=== PATIENT | female | born 1945 | race American Indian/Alaskan Native ===

== ENCOUNTER 2018-02-01 09:07 | Outpatient (CLI) | payer MEDICARE ==
--- NOTE | 2018-02-01 11:47 | Ultrasound Report ---
BILATERAL DIGITAL DIAGNOSTIC MAMMOGRAM with CAD and RIGHT BREAST ULTRASOUND: 02/01/18 09:00:00 CLINICAL: Palpable right breast lump. COMPARISON:12/01/09 FINDINGS: The breasts are mostly fatty. An irregular right upper and are mass correlates with the right palpable lump and measures 4.0 x 2.7 x 3.3 cm on the mammogram.No other mass, architectural distortion or suspicious calcifications . The fibroglandular pattern of the left breast is unchanged except for an irregular asymmetry in the upper breast on a spot MLO view. No architectural distortion or suspicious calcifications of the left breast. Ultrasound of the right breast (including all four quadrants and the retroareolar area) was performed and demonstrated an irregular solid hypoechoic mass at 2 o'clock 7 cm from the nipple. It measures 3.0 x 1.6 x 2.5 cm and correlates with the mammographic mass. No other mass and no cyst of the right breast. Ultrasound of the right axilla demonstrated several small lymph nodes with central fat and benign morphology. No suspicious right axillary lymph nodes. Ultrasound of the left breast (including all four quadrants and the retroareolar area) was performed and demonstrated no mass, cyst or shadowing. Ultrasound of the left axilla demonstrated several small lymph nodes with central fat and benign morphology. No suspicious left axillary lymph nodes. IMPRESSION: 1. A highly suspicious 3 cm right breast mass at 2 o'clock. 2. No suspicious lymph nodes. 3. Negative left breast. BI-RADS CATEGORY: 5 - - Highly Suggestive of Malignancy RECOMMENDATION: Ultrasound guided needle core biopsy of the right breast. I discussed the findings and the recommendation for needle core biopsy of the right breast with the patient and her daughter at the time of the examination. ACR BI-RADS MAMMOGRAPHIC CODES: 0 = Needs additional imaging evaluation; 1 = Negative; 2 = Benign; 3 = Probably benign; 4 = Suspicious; 5 = Malignant; 6 = Known biopsy-proven malignancy COMMENT: 1. Dense breast tissue, i.e., adenosis, fibrocystic changes, etc., may obscure an underlying neoplasm. 2. Approximately 10% of cancers are not detected with mammography. 3. A negative mammography report should not delay biopsy if a clinically suspicious mass is present. COMMENT: Patient follow-up letters are generated by our [employer] application.
== END 2018-02-01 09:08 | disposition home or self-care (01) ==
LOC: MAMMO 09:07
PROVIDERS: ATTEND Internal Medicine
DX: R92.8 Other abnormal and inconclusive findings on diagnostic imaging of breast (principal); Z88.6 Allergy status to analgesic agent
CPT/HCPCS: 77066

== ENCOUNTER 2018-02-15 15:20 | Outpatient (CLI) | payer MEDICARE, OTHER | END 2018-02-15 15:21 | disposition home or self-care (01) | LOC: LABHHL 15:20 | PROVIDERS: ATTEND Surgery | DX: C50.911 Malignant neoplasm of unspecified site of right female breast (principal); Z88.6 Allergy status to analgesic agent | CPT/HCPCS: 88305; 88342; 88361 ==

== ENCOUNTER 2018-02-27 12:46 | Outpatient (CLI) | payer MEDICARE ==
--- NOTE | 2018-02-27 15:35 | Mammography Report ---
BONE DEXA:02/27/18 12:46:00 CLINICAL: Postmenopausal.Newly diagnosed right breast cancer. There is a comparison DEXA from 12/01/09 but it was performed on a different scanner in this prohibits a true comparative analysis by the computer. TECHNIQUE: Two site bone DEXA performed on an [employer] scanner. FINDINGS: The average BMD of the lumbar spine L1-L4 is 1.576g/cm squared with a T-score of +4.8 and a Z-score of 6.4. The average BMD of the left hip is 1.244g/cm squared with a T-score of +2.5 and a Z-score of +2.6. IMPRESSION: 1. WHO classification: Normal with average fracture risk based on both spine and left hip measurements. 2. The lumbar spine and left hip BMD levels are relatively high which suggests there may be a an underlying metabolic disorder. However, this is not a new phenomenon since she also had relatively high T-scores and Z scores on a comparison DEXA from 12/01/09. RECOMMENDATION: Clinical correlation and routine screening. DEFINITIONS: BMD = Bone Mineral Density T-score = BMD related to mean peak bone mass of young adult (mean expressed in Standard Deviation) Z-score = Age matched BMD expressed in SD World Health Organization (WHO) Diagnostic Criteria Normal T-score > -1 SD Osteopenia T-score between -1 and -2.4 SD Osteoporosis T-score -2.5 SD or below NOTE: BMD is not the only risk factor for fracture. One should also consider factors such as the patient's age, risk of falling, previous osteoporotic fracture, family history of osteoporotic fractures, current smoker, and low body weight. Z-scores are not calculated if >80 years of age.
== END 2018-02-27 12:47 | disposition home or self-care (01) ==
LOC: MAMMO 12:46
PROVIDERS: ATTEND Internal Medicine Hematology & Oncology
DX: Z13.820 Encounter for screening for osteoporosis (principal); F17.210 Nicotine dependence, cigarettes, uncomplicated; Z78.0 Asymptomatic menopausal state
CPT/HCPCS: 77080

== ENCOUNTER 2018-03-20 06:01 | Observation (INO) | payer MEDICARE ==
[~2018-03-20 06:01] MED LIST: ANCEF IV ONE; BACITRACIN IR ONE; GARAMYCIN IV ONE; NACL 0.9% IR ONE; WATER FOR IRRIG STERILE IR ONE
[2018-03-20] MEDS ORDERED: NACL BACTERIOSTATIC INFILTRATI ONE (06:40)
[2018-03-20] MEDS ORDERED: SUBLIMAZE IV NR (07:40)
[2018-03-20] MEDS ORDERED: DILAUDID IV PRN (07:40)
[2018-03-20] MEDS ORDERED: BACITRACIN ONE (07:41)
[2018-03-20] MEDS ORDERED: GARAMYCIN ONE (07:41)
[2018-03-20] MEDS ORDERED: NACL ONE (07:42)
[2018-03-20] MEDS ORDERED: ANCEF ONE (07:42)
[2018-03-20] MEDS ORDERED: METHYLENE BLUE ONE (07:43)
[2018-03-20] MEDS ORDERED: MARCAINE 0.5% INFILTRATI ONE (07:49)
[2018-03-20] MEDS ORDERED: DIPRIVAN 10 MG/ML IV ONE (07:55)
--- NOTE | 2018-03-20 07:55 | Anesthesia Day of Surgery ---
Anesthesia Day of Surgery - Day of Surgery Patient Examined: Yes Patient H&P Reviewed: Yes Patient is NPO: Yes
--- NOTE | 2018-03-20 07:55 | Anesthesia Consultation ---
Anesthesia Consult and Med Hx Date of service: 03/20/18 - Airway Anesthetic Teeth Evaluation: Good ROM Head & Neck: Adequate Mental/Hyoid Distance: Adequate Mallampati Class: Class II Intubation Access Assessment: Probably Good - Pulmonary Exam CTA: Yes - Cardiac Exam Cardiac Exam: RRR - Pre-Operative Health Status ASA Pre-Surgery Classification: ASA3 Proposed Anesthetic Plan: General Nerve Block: PEC - Pulmonary Hx Smoking: No Hx Asthma: No Hx Respiratory Symptoms: No SOB: No COPD: No - Cardiovascular System Hx Hypertension: Yes Hx Heart Attack/AMI: No - Central Nervous System Hx Seizures: No CVA: Yes (2010; residual right sided weakness) - Gastrointestinal Hx Gastroesophageal Reflux Disease: Yes (asymptomatic today) - Endocrine Hx Renal Disease: No Hx Liver Disease: No 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 Consented for PEC block. Refuses all blood products.
[2018-03-20] MEDS ORDERED: NEURONTIN PO NR (08:00)
[2018-03-20] MEDS ORDERED: PEPCID PO NR (08:00)
[2018-03-20] MEDS ORDERED: VERSED IV NR (08:00)
[2018-03-20] MEDS ORDERED: ANCEF/STERILE WATER 2 GM/20 ML IV NR (08:00)
[2018-03-20] MEDS ORDERED: LACTATED RINGERS 1,000 ML IV SCH ×2 (08:00→12:00)
--- NOTE | 2018-03-20 09:08 | Operative Report ---
Operative Report Operative Report: Date of Service: March 20, 2018 Preoperative diagnosis: Right breast cancer of the upper inner quadrant Postoperative diagnosis: Same Procedure: Right total mastectomy and sentinel lymph node biopsy Surgeon: Ruthie Wagner M.D. Promotional Marketing Analyst: Sandy Hayward D.O. Anesthesia: Gen. Findings: Radiograph specimen right mastectomy with clip present; 3 SLNs and negative for malignancy on frozen Complications: None Drains: 1 Estimated blood loss: Minimal Disposition: PACU in good condition Indications for operative procedure: This is a 72-year-old lady with newly diagnosed right breast cancer of the upper inner quadrant IDCA grade [id number] ER /MT positive. She wished to proceed with a right mastectomy with SLNB and possible ALND. Patient wished to proceed with the above procedure. Procedure in detail: Anesthesia placed right pectoral muscle block prior to going to the operating room. The patient was taken to the operating room and was placed supine. Gen. anesthesia was administered. Right nipple was injected with radioisotope and 1 cc of methylene blue mixed with 1 cc of saline. Timeout was performed. Typical mastectomy incision markings were made of right breast to include known cancer at the 2:00 position. Right SLN hot spot was marked. Attention was taken towards the right breast. First began raising of the superior flap to the level of the clavicle superiorly and posteriorly to the pectoralis muscle. Followed by raising of the medial flap to the level of the sternum and posteriorly to the pectoralis muscle. Followed by raising of the lateral flap to the level of the latissimus dorsi muscle and taken down posteriorly. The gamma probe was inserted into the axilla. The area of location of SLN was identified. the axillary fasica was opened. 3 SLNs were identified and sent to pathology, one lymph node with blue dye present. Frozen section from all SLNs negative for malignancy. Then proceeded with raising of the inferior flap to the level of the inframammary fold taken posterior to the pectoralis muscle. The mastectomy/breast was removed from the pectoralis muscle without incident. The specimen was appropriately marked and sent to radiology and pathology. Radiograph specimen with clip present. Hemostasis was obtained with the bovie cautery. She tolerated surgery very well and Dr. Mcneil then proceeded with immediate tissue felt dyeing machine tender placement.
[2018-03-20] MEDS ORDERED: DECADRON ONE ×2 (09:21)
[2018-03-20] MEDS ORDERED: XYLOCAINE MPF 2% ONE (09:21)
[2018-03-20] MEDS ORDERED: BENADRYL ONE (09:21)
[2018-03-20] MEDS ORDERED: METHYLENE BLUE IRRIGATION ONE (09:45)
[2018-03-20] MEDS ORDERED: NACL INFILTRATI ONE (09:45)
[2018-03-20] MEDS ORDERED: NEO SYNEPHRINE/NS Syringe(OR USE) IV ONE (09:46)
[2018-03-20] MEDS ORDERED: WATER FOR IRRIG STERILE IR ONE (10:12)
[2018-03-20] MEDS ORDERED: BENADRYL PO PRN (10:32)
[2018-03-20] MEDS ORDERED: ZOFRAN IV PRN (10:32)
[2018-03-20] MEDS ORDERED: TYLENOL PO PRN ×2 (10:32)
[2018-03-20] MEDS ORDERED: REGLAN PO PRN (10:32)
[2018-03-20] MEDS ORDERED: SODIUM CHLORIDE FLUSH SYRINGE 10 ML IV PRN (10:32)
[2018-03-20] MEDS ORDERED: ROXICODONE PO PRN (10:32)
--- NOTE | 2018-03-20 10:32 | Post Operative Note ---
Pre-op diagnosis: right breast cancer Post-op diagnosis: same Findings: right mastectomy defect Procedure: right breast reconstruction with tissue aba tutor and mesh Anesthesia: GETA Surgeon: CIARRA SHERMAN Estimated blood loss: minimal Condition: stable Disposition: PACU
[2018-03-20] MEDS ORDERED: BACITRACIN IR ONE (11:31)
[2018-03-20] MEDS ORDERED: GARAMYCIN IV ONE (11:31)
[2018-03-20] MEDS ORDERED: ANCEF IV ONE (11:31)
[2018-03-20] MEDS ORDERED: NACL 0.9% IR ONE (11:31)
--- NOTE | 2018-03-20 11:31 | Mammography Report ---
SPECIMEN RADIOGRAPH RIGHT BREAST: 03/20/18 06:01:00 CLINICAL: Right mastectomy specimen FINDINGS: An irregular mass and a biopsy clip are identified within the specimen. IMPRESSION: Excision of the known cancer.
[2018-03-20] MEDS ORDERED: ROBINUL ONE (12:19)
[2018-03-20] MEDS ORDERED: BLOXIVERZ ONE (12:19)
--- NOTE | 2018-03-20 14:08 | Post Anesthesia Evaluation ---
- Post Anesthesia Evaluation Patient Participated: Yes Airway Patent: Yes Stable Respiratory Function: Yes Nausea/Vomiting: No Temp > 96.8F: Yes Pain Manageable: Yes Adequeate Hydration: Yes Anesthesia Complications: No Other Comments: Block providing adequate analgesia. OK for transfer to floor.
--- NOTE | 2018-03-20 16:50 | Operative Report ---
PREOPERATIVE DIAGNOSIS: Right -sided breast cancer. POSTOPERATIVE DIAGNOSIS: Right -sided breast cancer. PROCEDURES: 1. Right breast reconstruction with tissue flower shop manager, prepectoral CPT CODE 26603. 2. Right breast reconstruction using implantation of biological mesh, FlexHD for breast reconstruction, CPT code 38453. 3. Application of ROB, negative pressure wound VAC device to the right breast. 4. Postoperative wound healing, CPT code 08759. SURGEON: Carlos Alberto Liang MD WELT ROUGHER: None. ANESTHESIA: General. OPERATIVE INDICATIONS: This is a 72-year-old female with right-sided breast cancer, who decided to undergo right-sided mastectomy, was referred by Dr. Wagner. The patient was given the options of breast reconstruction and decided to proceed with a right tissue flower shop manager reconstruction. Risks and benefits of surgery discussed with the patient. She agreed. OPERATIVE DETAILS: With informed consent obtained, the patient brought to the operating room and placed supine on the operating room table. Preoperative antibiotics and general anesthesia were administered. The patient was prepped and draped in usual sterile fashion. Timeout was called verifying the name of the patient, operation being performed, and side and site of the operation. Dr. Wagner began her portion of the operation and was to be dictated separately. Upon arrival to the room, she had performed the right-sided mastectomy and sentinel lymph node biopsy. I assessed the defect, skin flaps were thin, but seemed adequate. There was a significant amount of skin resection that was done so there was going to be some tension on the closure. Achieved hemostasis, irrigated copiously with triple antibiotic, measured the chest wall, and selected our implants. I took a [place] [employer] high profile smooth 500 mL tissue flower shop manager, serial #[id number] and on the back table at repair that with a piece of FlexHD pliable 13 x 22 cm shaped perforated serial #[id number]. I wrapped the flower shop manager with a piece of FlexHD. We used 2-0 PDS sutures to anchor it to the 5 suture tabs and also some spanning sutures in order to secure posteriorly. We sucked all the air out of the flower shop manager and then irrigated it in triple antibiotic and Betadine, placed it in the breast pocket and secured it to the chest wall inframammary fold lateral chest wall using the suture tabs and 2-0 Vicryl sutures. Some sutures were placed in the FlexHD and anchored to expand to the upper pectoralis muscle as well to prevent rotation. A 15-Bruneian and 19-Bruneian round Judah drains were placed in the prepectoral pocket. Everything was again copiously irrigated with triple antibiotic and Betadine, and we then proceeded with closure. 3-0 Monocryl deep dermals were used, 3-0 Monocryl running subcuticular with a barbed V-Loc suture was used on the skin and then a ROB negative pressure wound VAC device was applied to the right breast for postoperative wound healing. The patient tolerated procedure well, was awakened from general anesthesia, transferred to PACU in stable condition. COMPLICATIONS: None. ESTIMATED BLOOD LOSS: Less than 50 mL, total fill volume 0 mL, the flower shop manager. FINDINGS: Right mastectomy defect. JOB# [id number] Amanda/ROSE MARY
[2018-03-20] MEDS: ANCEF/NS 1 GM/50 ML 1 GM/50 ML BAG IV SCH (19:20)
[2018-03-20] MEDS: NEURONTIN PO SCH (22:03)
[2018-03-20] MEDS: COLACE PO SCH (22:03)
[2018-03-21] MEDS: ANCEF/NS 1 GM/50 ML 1 GM/50 ML BAG IV SCH (03:08)
[2018-03-21] MEDS: NEURONTIN PO SCH ×2 (05:25→21:50)
[2018-03-21] MEDS: COLACE PO SCH ×2 (11:13→21:50)
--- NOTE | 2018-03-21 15:16 | Progress Note ---
Assessment and Plan This is a 72 year old lady with Stage II right breast cancer of the upper inner quadrant, POD#1 right total mastectomy with SLNB and tissue fretted instruments inspector placement. No acute events overnight. 1. Right chest with incision healing well. 2. CHRISTOPHER drain education. 3. OOB to hallway. 4. D/C planning for tomorrow. Subjective Date of service: 03/21/18 Principal diagnosis: Right breast cancer of the upper inner quadrant Interval history: This is a 72 year old lady with Stage II right breast cancer of the upper inner quadrant, POD#1 right total mastectomy with SLNB and tissue fretted instruments inspector placement. No acute events overnight. Objective - Constitutional Vitals: Vital Signs - 12hr 18 18 03/21/18 04:00 07:36 12:11 Temperature 98.6 F 98.5 F 98.5 F Pulse Rate 71 74 71 Respiratory 18 20 20 Rate Blood Pressure 125/62 Blood Pressure 116/61 138/52 [Left] O2 Sat by Pulse 95 95 Oximetry General appearance: Present: no acute distress - EENT Eyes: PERRL, EOM intact ENT: hearing intact, clear oral mucosa Ears: bilateral: normal - Neck Neck: supple - Respiratory Respiratory effort: normal Respiratory: bilateral: CTA - Breasts Breasts: other (right PICCO dressing intact; no hematoma; JPs to bulb suction) - Cardiovascular Rhythm: regular Extremities: no ischemia, pulses intact, pulses symmetrical, No edema, normal temperature, normal color, Full ROM - Gastrointestinal General gastrointestinal: Present: soft, non-tender, non-distended Rectal Exam: deferred - Genitourinary Female genitourinary: deferred - Integumentary Integumentary: clear, warm, dry - Musculoskeletal Musculoskeletal: strength equal bilaterally - Neurologic Neurologic: CNII-XII intact, moves all extremities - Psychiatric Psychiatric: appropriate mood/affect, intact judgment & insight, memory intact, cooperative - Labs Labs: Abnormal lab results 03/20/18 Range/Units 12:58 POC Glucose 124 H (70-105)
[2018-03-22] MEDS: NEURONTIN PO SCH (06:03)
[2018-03-22 09:11] VITALS: BP 129/58
== END 2018-03-22 10:35 | disposition home or self-care (01) ==
LOC: OR 06:01 → OB 10:33
PROVIDERS: ADMIT Surgery; ATTEND Surgery
DX: C50.211 Malignant neoplasm of upper-inner quadrant of right female breast (principal); I10 Essential (primary) hypertension; E11.9 Type 2 diabetes mellitus without complications; K21.9 Gastro-esophageal reflux disease without esophagitis; Z86.73 Personal history of transient ischemic attack (TIA), and cerebral infarction without residual deficits; E66.9 Obesity, unspecified; Z68.34 Body mass index [BMI] 34.0-34.9, adult
CPT/HCPCS: 15777; 19303; 19357; 38525; 38792; 64450; 76098; 78800; 82962; 88307; 88331; 88342; 96365; 96366; 96375; 97607; A9541; C1789; G0378; J0690; J1100; J1170; J1200; J1580; J2250; J2370; J2704; J2710; J3010; J7120; Q4128; Q9968; 88309; 88333